=== PATIENT | female | born 1990 | race Hispanic/Latino ===

== ENCOUNTER 2024-01-30 16:03 | Inpatient (IN) | payer OTHER ==
[2024-01-30] MEDS ORDERED: hydrALAZINE 20 MG/ML VIAL SLOW IVP PRN (18:53)
[2024-01-30] MEDS ORDERED: Promethazine HCl 25 MG/ML VIAL IM PRN (18:53)
[2024-01-30] MEDS ORDERED: Ondansetron PF 4 MG/2 ML Vial IVP PRN (18:53)
[2024-01-30 18:57] VITALS: BMI 37.9
[2024-01-30] MEDS: Lactated Ringer's 1,000 ML IV SCH ×2 (20:30→21:17)
[2024-01-30] MEDS: Piperacillin/Tazobactam 3.375 GM in Sodium Chloride 0.9% 100 ML IVPB SCH (21:16)
[2024-01-30 22:51] LABS: #Basophils 0.01 10x3/uL (0.0-0.2); #Eosinphils 0.18 10x3/uL (0.0-0.5); #Monocytes 0.41 10x3/uL (0.0-1.1); #Neutrophils 8.03 10x3/uL (1.5-8.4); %Basophils 0.1 % (0.0-2.0); %Lymphocytes 5.1 % (18.0-47.0); %Monocytes 4.5 % (0.0-10.0); %Neutrophils 87.9 % (40.0-75.0); Hematocrit 33.9 % (34.9-44.5); Hemoglobin 11.1 g/dL (12.0-15.5); Mean Corpuscular HGB CONC 32.7 g/dL (32.0-36.0); Mean Corpuscular Hemoglobin 28.9 pg (27.0-33.0); Mean Corpuscular Volume 88.3 fL (81.6-98.3); Mean Platelet Volume 11.1 fL (7.4-10.4); Platelet Count 166 10x3/uL (150-450); RBC Distribution Width 13.3 % (11.5-14.5); Red Blood Cell (RBC) Count 3.84 10x6/uL (3.90-5.03); White Blood Cell (WBC) Count 9.1 10x3/uL (3.5-10.5)
[2024-01-30 22:57] LABS: Prothrombin Time 10.9 sec (9.5-12.1)
[2024-01-31] MEDS: Melatonin 3 MG TAB PO SCH (00:32)
[2024-01-31] MEDS: Piperacillin/Tazobactam 3.375 GM in Sodium Chloride 0.9% 100 ML IVPB SCH ×2 (01:32→09:54)
[2024-01-31] MEDS: Acetaminophen 500 MG TAB PO SCH ×2 (01:32→13:45)
[2024-01-31] MEDS ORDERED: Methylergonovine 0.2 MG/ML VIAL IM PRN (02:33)
[2024-01-31] MEDS ORDERED: Diphenoxylate HCl/Atropine Tablet PO PRN (02:33)
[2024-01-31] MEDS ORDERED: Misoprostol 200 MCG TAB PR PRN (02:33)
[2024-01-31] MEDS ORDERED: Tranexamic Acid 1,000 MG/10 ML VIAL IVP PRN (02:33)
[2024-01-31] MEDS ORDERED: Bicitra 30 ML UDCUP PO PRN (02:33)
[2024-01-31] MEDS ORDERED: Famotidine/PF 20 mg/2ml Vial SLOW IVP PRN (02:33)
[2024-01-31] MEDS ORDERED: Carboprost 250 MCG/ML AMP IM PRN (02:33)
[2024-01-31] MEDS ORDERED: Oxytocin 30 units/NS 500 ML 500 ML IV SCH (02:45)
[2024-01-31] MEDS ORDERED: CEFAZOLIN 2 GM in Sodium Chloride 0.9% 100 ML IVPB SCH (02:45)
[2024-01-31 04:16] LABS: Syphilis Antibody Nonreactive (Nonreactive); Syphilis Antibody Index 0.11 S/CO (<1.00 Non-Reactive)
[2024-01-31 04:18] LABS: HBsAg Index 0.24 S/CO (0-0.99); HIV (1/2) Antibody/Antigen Non-Reactive (NonReactive); HIV 1/2 INDEX 0.07 S/CO (<1.00); Hep B Surf Ag - L&D Non-Reactive S/CO (NonReactive)
[2024-01-31] MEDS ORDERED: Gentamicin Sulfate 80 MG in Premix 1 BAG IVPB SCH ×2 (05:00→14:00)
[2024-01-31 05:17] LABS: #Basophils 0.01 10x3/uL (0.0-0.2); #Neutrophils 6.55 10x3/uL (1.5-8.4); %Basophils 0.1 % (0.0-2.0); %Lymphocytes 8.8 % (18.0-47.0); %Monocytes 6.4 % (0.0-10.0); %Neutrophils 83.9 % (40.0-75.0); Hematocrit 29.4 % (34.9-44.5); Hemoglobin 9.7 g/dL (12.0-15.5); Mean Corpuscular Hemoglobin 28.7 pg (27.0-33.0); Mean Platelet Volume 10.5 fL (7.4-10.4); Platelet Count 134 10x3/uL (150-450); RBC Distribution Width 13.4 % (11.5-14.5); Red Blood Cell (RBC) Count 3.38 10x6/uL (3.90-5.03); White Blood Cell (WBC) Count 7.8 10x3/uL (3.5-10.5)
[2024-01-31 05:45] LABS: ALT (SGPT) 59 U/L (8-55); AST (SGOT) 48 U/L (5-34); Albumin 2.1 g/dL (3.5-5.0); Alkaline Phosphatase 54 U/L (40-110); Anion Gap 17 mmol/L (10-20); BUN (Urea Nitrogen) 7 mg/dL (7.0-18.7); Bilirubin, Total 0.8 mg/dL (0.2-1.2); Calc. Creatinine Clearance 180 mL/min (70-130); Calcium 8.5 mg/dL (7.8-10.44); Carbon Dioxide 15 mmol/L (22-29); Chloride 110 mmol/L (98-107); Estimated GFR 107; Globulin 3.4 g/dL (2.4-3.5); Glucose 104 mg/dL (70-105); Potassium 3.4 mmol/L (3.5-5.1); Protein, Total 5.5 g/dL (6.0-8.3); Sodium 139 mmol/L (136-145)
[2024-01-31] MEDS: Aspirin 81 mg Enteric Coated Tablet PO SCH (08:28)
[2024-01-31] MEDS: Potassium Chloride 20 MEQ TAB PO SCH (08:28)
[2024-01-31] MEDS: Prenatal Vitamin 1 TAB PO SCH (08:29)
[2024-01-31] MEDS: Acetaminophen 500 MG TAB PO PRN ×2 (08:29→19:45)
[2024-01-31] MEDS: Acidophilus Lactiobac CAPSULE PO SCH (08:29)
[2024-01-31] MEDS: Gentamicin Sulfate 120 MG in Premix 1 BAG IVPB SCH ×2 (11:54→13:56)
[2024-01-31] MEDS: Meropenem 1 GM in Sodium Chloride 0.9% 100 ML IVPB SCH ×2 (13:37→20:57)
[2024-01-31] MEDS ORDERED: cefTRIAXone\\ROCEPHIN 1 GM in Sodium Chloride 0.9% 100 ML IVPB SCH (15:00)
[2024-02-01] MEDS: Lactated Ringer's 500 ML IV SCH ×2 (07:08→07:09)
[2024-02-01 08:00] LABS: #Basophils 0.02 10x3/uL (0.0-0.2); #Eosinphils 0.02 10x3/uL (0.0-0.5); #Monocytes 0.64 10x3/uL (0.0-1.1); #Neutrophils 6.62 10x3/uL (1.5-8.4); %Basophils 0.2 % (0.0-2.0); %Eosinophils 0.2 % (0.0-6.0); %Lymphocytes 12.2 % (18.0-47.0); %Monocytes 7.6 % (0.0-10.0); Hemoglobin 11.2 g/dL (12.0-15.5); Mean Corpuscular HGB CONC 32.9 g/dL (32.0-36.0); Mean Corpuscular Hemoglobin 28.9 pg (27.0-33.0); Mean Corpuscular Volume 87.6 fL (81.6-98.3); Mean Platelet Volume 11.5 fL (7.4-10.4); Platelet Count 128 10x3/uL (150-450); RBC Distribution Width 13.6 % (11.5-14.5); Red Blood Cell (RBC) Count 3.88 10x6/uL (3.90-5.03); White Blood Cell (WBC) Count 8.4 10x3/uL (3.5-10.5)
[2024-02-01 08:13] LABS: ALT (SGPT) 60 U/L (8-55); AST (SGOT) 43 U/L (5-34); Albumin 2.2 g/dL (3.5-5.0); Alkaline Phosphatase 59 U/L (40-110); Anion Gap 14 mmol/L (10-20); BUN (Urea Nitrogen) 5 mg/dL (7.0-18.7); Bilirubin, Total 0.5 mg/dL (0.2-1.2); Calc. Creatinine Clearance 180 mL/min (70-130); Carbon Dioxide 18 mmol/L (22-29); Chloride 109 mmol/L (98-107); Estimated GFR 107; Globulin 3.7 g/dL (2.4-3.5); Glucose 82 mg/dL (70-105); Potassium 4.2 mmol/L (3.5-5.1); Protein, Total 5.9 g/dL (6.0-8.3); Sodium 137 mmol/L (136-145)
[2024-02-01] MEDS: guaiFENesin ER 600 MG TAB PO PRN (09:26)
[2024-02-01 23:48] LABS: Group B Streptococcus by PCR Not Detected (NotDetected)
[2024-02-02 04:28] LABS: #Basophils 0.01 10x3/uL (0.0-0.2); #Eosinphils 0.12 10x3/uL (0.0-0.5); #Monocytes 0.52 10x3/uL (0.0-1.1); %Basophils 0.2 % (0.0-2.0); %Eosinophils 2.2 % (0.0-6.0); %Monocytes 9.4 % (0.0-10.0); %Neutrophils 63.5 % (40.0-75.0)
[2024-02-02 04:29] LABS: Hematocrit 30.4 % (34.9-44.5); Hemoglobin 10.3 g/dL (12.0-15.5); Mean Corpuscular HGB CONC 33.9 g/dL (32.0-36.0); Mean Corpuscular Volume 85.6 fL (81.6-98.3); Platelet Count 147 10x3/uL (150-450); RBC Distribution Width 13.3 % (11.5-14.5); Red Blood Cell (RBC) Count 3.55 10x6/uL (3.90-5.03); White Blood Cell (WBC) Count 5.5 10x3/uL (3.5-10.5)
[2024-02-02 04:41] LABS: ALT (SGPT) 46 U/L (8-55); AST (SGOT) 27 U/L (5-34); Alkaline Phosphatase 59 U/L (40-110); Anion Gap 14 mmol/L (10-20); BUN (Urea Nitrogen) 6 mg/dL (7.0-18.7); Bilirubin, Total 0.3 mg/dL (0.2-1.2); Calc. Creatinine Clearance 191 mL/min (70-130); Calcium 8.7 mg/dL (7.8-10.44); Carbon Dioxide 22 mmol/L (22-29); Chloride 108 mmol/L (98-107); Estimated GFR 115; Globulin 3.5 g/dL (2.4-3.5); Glucose 97 mg/dL (70-105); Potassium 3.9 mmol/L (3.5-5.1); Protein, Total 5.5 g/dL (6.0-8.3); Sodium 140 mmol/L (136-145)
[2024-02-02] MEDS ORDERED: Meropenem 1 GM in Sodium Chloride 0.9% 100 ML IVPB SCH (21:00)
[2024-02-02] MEDS: Meropenem 1 GM in Sodium Chloride 0.9% 100 ML IVPB SCH (21:57)
[2024-02-03 07:32] VITALS: BP 129/81; TEMP 97.4
[2024-02-03 07:49] LABS: ALT (SGPT) 42 U/L (8-55); AST (SGOT) 26 U/L (5-34); Albumin 1.9 g/dL (3.5-5.0); Alkaline Phosphatase 67 U/L (40-110); Anion Gap 12 mmol/L (10-20); BUN (Urea Nitrogen) 8 mg/dL (7.0-18.7); Bilirubin, Total 0.3 mg/dL (0.2-1.2); Calc. Creatinine Clearance 183 mL/min (70-130); Calcium 8.4 mg/dL (7.8-10.44); Carbon Dioxide 21 mmol/L (22-29); Chloride 111 mmol/L (98-107); Estimated GFR 109; Globulin 3.6 g/dL (2.4-3.5); Glucose 76 mg/dL (70-105); Potassium 4.1 mmol/L (3.5-5.1); Protein, Total 5.5 g/dL (6.0-8.3); Sodium 140 mmol/L (136-145)
[2024-02-03] MEDS: Ertapenem 1 GM in Sodium Chloride 0.9% 100 ML IVPB SCH (13:39)
== END 2024-02-03 16:00 | disposition home or self-care (01) | DRG 831 ==
LOC: CSHLD 18:28 → OBSVTOIN 18:28 → CSHANTE 02-01 11:25
PROVIDERS: ADMIT Family Medicine; ATTEND Family Medicine
PROC: 02HV33Z Insertion of Infusion Device into Superior Vena Cava, Percutaneous Approach (ICD-10-PCS; principal; 2024-02-03)
DX: O98.813 Other maternal infectious and parasitic diseases complicating pregnancy, third trimester (principal); A41.51 Sepsis due to Escherichia coli [E. coli]; E87.20 Acidosis, unspecified; N13.6 Pyonephrosis; N10 Acute pyelonephritis; Z3A.34 34 weeks gestation of pregnancy; E87.6 Hypokalemia; O99.284 Endocrine, nutritional and metabolic diseases complicating childbirth; E74.39 Other disorders of intestinal carbohydrate absorption; O99.283 Endocrine, nutritional and metabolic diseases complicating pregnancy, third trimester; O36.8330 Maternal care for abnormalities of the fetal heart rate or rhythm, third trimester, not applicable or unspecified
CPT/HCPCS: 36415; 36569; 76770; 76819; 76937; 77001; 80053; 83605; 85025; 85610; 86780; 86850; 86900; 86901; 87040; 87340; 87389; 87653; 99285; C1751; J1335; J2185; J2543; J7120

== ENCOUNTER 2024-02-12 12:24 | Day surgery (SDC) | payer OTHER ==
[2024-02-12 12:56] VITALS: BMI 38.4
[2024-02-12] MEDS ORDERED: hydrALAZINE 20 MG/ML VIAL SLOW IVP PRN (13:39)
== END 2024-02-12 16:25 | disposition home or self-care (01) ==
LOC: CSHLD/OP 12:24
PROVIDERS: ATTEND Family Medicine
DX: Z36.89 Encounter for other specified antenatal screening (principal); O99.891 Other specified diseases and conditions complicating pregnancy; R78.81 Bacteremia; O24.419 Gestational diabetes mellitus in pregnancy, unspecified control; O32.1XX0 Maternal care for breech presentation, not applicable or unspecified; O23.03 Infections of kidney in pregnancy, third trimester; N12 Tubulo-interstitial nephritis, not specified as acute or chronic; Z98.890 Other specified postprocedural states; O13.3 Gestational [pregnancy-induced] hypertension without significant proteinuria, third trimester; Z3A.36 36 weeks gestation of pregnancy
CPT/HCPCS: 76819

== ENCOUNTER 2024-02-13 08:07 | Inpatient (IN) | payer OTHER ==
[2024-02-13] MEDS ORDERED: Bicitra 30 ML UDCUP PO PRN (08:52)
[2024-02-13] MEDS ORDERED: Tranexamic Acid 1,000 MG/10 ML VIAL IVP PRN (08:52)
[2024-02-13] MEDS ORDERED: hydrALAZINE 20 MG/ML VIAL SLOW IVP PRN ×2 (08:52→11:32)
[2024-02-13] MEDS ORDERED: Acetaminophen 500 MG TAB PO PRN (08:52)
[2024-02-13] MEDS ORDERED: Carboprost 250 MCG/ML AMP IM PRN (08:52)
[2024-02-13] MEDS ORDERED: Ondansetron PF 4 MG/2 ML Vial IVP PRN ×4 (08:52→13:45)
[2024-02-13] MEDS ORDERED: Promethazine HCl 25 MG/ML VIAL IM PRN ×3 (08:52→13:45)
[2024-02-13] MEDS ORDERED: Misoprostol 200 MCG TAB PR PRN ×2 (08:52→11:32)
[2024-02-13] MEDS ORDERED: Diphenoxylate HCl/Atropine Tablet PO PRN (08:52)
[2024-02-13] MEDS ORDERED: Methylergonovine 0.2 MG/ML VIAL IM PRN ×2 (08:52→11:32)
[2024-02-13] MEDS ORDERED: Oxytocin 30 units/NS 500 ML 500 ML IV SCH ×2 (09:00→11:45)
[2024-02-13] MEDS: Azithromycin 500 MG in Sodium Chloride 0.9% 250 ML 250 ML IVPB SCH (09:40)
[2024-02-13] MEDS: Famotidine/PF 20 mg/2ml Vial SLOW IVP PRN (09:40)
[2024-02-13 09:46] VITALS: BMI 38.4
[2024-02-13] MEDS: Lactated Ringer's 1,000 ML IV SCH (10:00)
[2024-02-13] MEDS: CEFAZOLIN 2 GM in Sodium Chloride 0.9% 100 ML IVPB SCH (10:00)
[2024-02-13 10:19] LABS: Hematocrit 38.2 % (34.9-44.5); Hemoglobin 12.8 g/dL (12.0-15.5); Mean Corpuscular HGB CONC 33.5 g/dL (32.0-36.0); Mean Corpuscular Hemoglobin 28.6 pg (27.0-33.0); Mean Corpuscular Volume 85.3 fL (81.6-98.3); Mean Platelet Volume 10.5 fL (7.4-10.4); Platelet Count 309 10x3/uL (150-450); RBC Distribution Width 13.6 % (11.5-14.5); Red Blood Cell (RBC) Count 4.48 10x6/uL (3.90-5.03); White Blood Cell (WBC) Count 11.7 10x3/uL (3.5-10.5)
[2024-02-13 10:29] LABS: Syphilis Antibody Nonreactive (Nonreactive)
[2024-02-13 10:30] LABS: HBsAg Index 0.24 S/CO (0-0.99); Hep B Surf Ag - L&D Non-Reactive S/CO (NonReactive)
[2024-02-13] MEDS ORDERED: Acetaminophen 325 MG TAB PO PRN (11:32)
[2024-02-13] MEDS ORDERED: Simethicone Chewable 80 MG TAB PO PRN (11:32)
[2024-02-13] MEDS: Ketorolac Tromethamine 30 MG (1 mL) VIAL ONE (12:48)
[2024-02-13] MEDS: Ondansetron PF 4 MG/2 ML Vial ONE (12:48)
[2024-02-13] MEDS: Oxytocin 10 UNITS/ML VIAL ONE (12:48)
[2024-02-13] MEDS: Morphine PF 10 MG/10 ML VIAL ONE ×2 (12:48)
[2024-02-13] MEDS: Dexamethasone 10 MG/ML VIAL ONE (12:48)
[2024-02-13] MEDS ORDERED: Moisturizing Cream (Eucerin) 113 GM JAR TOP PRN (13:45)
[2024-02-13] MEDS ORDERED: Meperidine HCl/PF 25 MG (1 mL) VIAL SLOW IVP PRN (13:45)
[2024-02-13] MEDS ORDERED: diphenhydrAMINE 50 MG/ML VIAL IVP PRN (13:45)
[2024-02-13] MEDS ORDERED: Naloxone HCl 0.4 mg/ml Vial IV PRN (13:45)
[2024-02-13] MEDS ORDERED: Communication Order-Pharmacy FS SCH (13:45)
[2024-02-13] MEDS ORDERED: Naloxone HCl 0.4 mg/ml Vial IVP PRN ×2 (13:45)
[2024-02-13] MEDS ORDERED: fentaNYL 50 mcg/mL 1 mL Vial SLOW IVP PRN (13:45)
[2024-02-13] MEDS ORDERED: Ketorolac Tromethamine 30 MG (1 mL) VIAL IVP SCH (18:00)
[2024-02-13] MEDS: Ketorolac Tromethamine 30 MG (1 mL) VIAL IVP PRN (18:04)
[2024-02-13] MEDS: Boostrix 0.5 ML (Tdap) VIAL (>/=7 yrs of age) IM ONE (20:36)
[2024-02-13] MEDS: Ferrous Sulfate 325 MG TAB PO SCH (20:36)
[2024-02-13] MEDS: Ibuprofen 800 MG TAB PO SCH (20:38)
[2024-02-14 06:58] LABS: Hematocrit 30.6 % (34.9-44.5); Hemoglobin 10.2 g/dL (12.0-15.5); Mean Corpuscular HGB CONC 33.3 g/dL (32.0-36.0); Mean Corpuscular Hemoglobin 28.7 pg (27.0-33.0); Mean Corpuscular Volume 86.2 fL (81.6-98.3); Mean Platelet Volume 10.7 fL (7.4-10.4); Platelet Count 262 10x3/uL (150-450); RBC Distribution Width 13.3 % (11.5-14.5); Red Blood Cell (RBC) Count 3.55 10x6/uL (3.90-5.03); White Blood Cell (WBC) Count 12.2 10x3/uL (3.5-10.5)
[2024-02-14] MEDS: Prenatal Vitamin 1 TAB PO SCH (08:05)
[2024-02-14] MEDS ORDERED: HYDROcodone/Acetaminophen 10/325 mg Tablet PO PRN (10:06)
[2024-02-14] MEDS: Acetaminophen 325 MG TAB PO SCH (10:34)
[2024-02-14] MEDS: HYDROcodone/Acetaminophen 5/325 mg Tablet PO PRN (10:35)
[2024-02-14] MEDS: Ibuprofen 800 MG TAB PO SCH (21:04)
[2024-02-14] MEDS: Docusate 100 MG CAP PO SCH (21:04)
[2024-02-15] MEDS: Ferrous Sulfate 325 MG TAB PO SCH (07:47)
[2024-02-15 09:15] VITALS: BP 132/76; TEMP 98.1
== END 2024-02-15 17:30 | disposition home or self-care (01) | DRG 788 ==
LOC: CSHLD/OP 08:07 → CSHLD 09:20 → CSHANTE 13:53
PROVIDERS: ADMIT Family Medicine; ATTEND Family Medicine
PROC: 10D00Z1 Extraction of Products of Conception, Low, Open Approach (ICD-10-PCS; principal; 2024-02-13)
DX: O32.1XX0 Maternal care for breech presentation, not applicable or unspecified (principal); Z3A.36 36 weeks gestation of pregnancy; E74.39 Other disorders of intestinal carbohydrate absorption; O99.284 Endocrine, nutritional and metabolic diseases complicating childbirth; Z37.0 Single live birth; O16.4 Unspecified maternal hypertension, complicating childbirth; O24.429 Gestational diabetes mellitus in childbirth, unspecified control; Z79.899 Other long term (current) drug therapy
CPT/HCPCS: 36415; 51702; 85027; 86780; 86850; 86900; 86901; 87340; 99285; J0456; J1100; J1885; J2274; J2405; J2590; J3490; J7050; J7120